=== PATIENT | male | born 1945 | race Two or more races ===

== ENCOUNTER 2018-09-20 11:00 | Emergency (ER) | payer MEDICARE, MEDICAID ==
[~2018-09-20] VITALS: Ht 172.7 cm; Wt 108.9 kg
[2018-09-20 11:07] VITALS: BP 120/56
== END 2018-09-20 13:05 | disposition home or self-care (01) ==
LOC: ER 11:00
DX: S63.92XA Sprain of unspecified part of left wrist and hand, initial encounter (principal); M19.042 Primary osteoarthritis, left hand; W10.8XXA Fall (on) (from) other stairs and steps, initial encounter; Y93.89 Activity, other specified; Y92.89 Other specified places as the place of occurrence of the external cause; Y99.8 Other external cause status
CPT/HCPCS: 73130